=== PATIENT | male | born 2005 | race Caucasian/White ===

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

== ENCOUNTER 2023-01-16 09:11 | Outpatient (CLI) | payer MEDICAID, SELFPAY ==
--- NOTE | 2023-01-16 09:24 | XR_ITS ---
WS: [id number] XR lumbar spine f/e only [id number] REASON FOR EXAM: BACK PAIN, LUMBAR FINDINGS: Lateral neutral, flexion, and extension views of the lumbar cervical spine only. Mild exaggeration of lumbar lordosis. Normal vertebral bodies L1 L5 Mild wedge deformity of T11 and T12 with kyphosis at the thoracolumbar junction. Normal intervertebral disc spaces. No spondylolysis. No significant spondylolisthesis. XR/XR lumbar spine f/e only [id number] IMPRESSION: Exaggerated lordosis of the lumbar cervical spine. Kyphosis at the thoracolumbar junction as above. Incompletely evaluated by this examination. History indicates evaluation for scoliosis. There are no standing AP views of t he thoracolumbar spine to make this evaluation.
== END 2023-01-16 09:12 | disposition home or self-care (01) ==
LOC: RAD 09:12
PROVIDERS: PCP Nurse Practitioner Family; Visit Provider Nurse Practitioner Family
DX: M40.56 Lordosis, unspecified, lumbar region (principal); M40.205 Unspecified kyphosis, thoracolumbar region; M54.50 Low back pain, unspecified
CPT/HCPCS: 72120

== ENCOUNTER 2023-02-13 07:44 | Outpatient (CLI) | payer MEDICAID, SELFPAY ==
--- NOTE | 2023-02-13 07:54 | MR_ITS ---
WS: [id number] MRI LUMBAR SPINE NONCONTRAST HISTORY: LUMBAR BACK PAIN W/RADICULOPATHY COMPARISON: None available. TECHNIQUE: Sagittal and axial multisequence imaging is submitted. Normal lumbar alignment with no compression fractures or marrow edema. Disc spaces and vertebral body heights are well-preserved. Conus terminates normally at L1-2 disc level. L1-L2: Normal. L2-L3: Mild facet arthritis. No stenosis. L3-L4: Mild facet and ligamentum flavum arthritis. Very mild encroachment upon the ventral thecal sac . No high-grade stenosis. L4-L5: Mild annular disc bulging with mild ligamentum flavum and facet arthritis. There is mild narro wing of the central canal and subarticular recesses by the disc and facet disease. No high-grade sten osis. L5-S1: Mild disc bulging slightly asymmetric to the right. Very tiny right paracentral disc protrusio n. No significant stenosis. IMPRESSION: 1. No high-grade central or foraminal stenosis. 2. Mild facet arthritis from L2-3 to L5-S1. 3. Very mild central and subarticular recess stenosis at L4-5.
== END 2023-02-13 07:45 | disposition home or self-care (01) ==
PROVIDERS: PCP Nurse Practitioner Family; Visit Provider Nurse Practitioner Family
DX: M47.26 Other spondylosis with radiculopathy, lumbar region (principal); M48.061 Spinal stenosis, lumbar region without neurogenic claudication
CPT/HCPCS: 72148

== ENCOUNTER 2023-04-11 08:51 | Outpatient (RCR) | payer MEDICAID, SELFPAY | END 2023-05-07 23:59 | disposition home or self-care (01) | LOC: TPT 08:51 | PROVIDERS: Visit Provider Nurse Practitioner Family | DX: M54.16 Radiculopathy, lumbar region (principal) | CPT/HCPCS: 97110; 97161 ==

== ENCOUNTER 2023-05-08 06:00 | Outpatient (RCR) | payer MEDICAID, SELFPAY | END 2023-06-06 23:59 | disposition home or self-care (01) | LOC: TPT 06:00 | PROVIDERS: PCP Nurse Practitioner Family; Visit Provider Nurse Practitioner Family | DX: M54.16 Radiculopathy, lumbar region (principal) | CPT/HCPCS: 97110 ==

== ENCOUNTER 2023-05-21 13:34 | Emergency (ER) | payer MEDICAID, SELFPAY ==
[2023-05-21 14:32] LABS: Basophils % 0.3 %; Eosinophils # 0.2 10^3/uL (0.0-0.8); Eosinophils % 2.1 %; Hematocrit 49.1 % (37-53); Lymphocytes # 1.8 10^3/uL (1.5-6.5); Lymphocytes % 19.3 %; Mean Corpuscular HGB Conc 34.2 g/dL (30-55); Mean Corpuscular Hemoglobin 29.4 pg (27-33); Mean Platelet Volume 10.5 fL (7.4-10.4); Monocytes # 0.5 10^3/uL (0.2-0.9); Monocytes % 5.5 %; Neutrophils # 6.66 10^3/uL (1.8-8.0); Neutrophils % 72.5 %; Nucleated Red Blood Cells % 0 %; Platelet Count 178 10^3/cmm (157-399); Red Blood Count 5.71 10^6/uL (3.85-5.65); White Blood Count 9.19 10^3/uL (4.5-13.0)
[2023-05-21 14:39] VITALS: BP 118/61; PULSE 109; RESP 17; TEMP 36.7; O2SAT 99; BMI 37.5
[2023-05-21 14:48] LABS: Urine Appearance SL Hazy (CLEAR); Urine Color Dark Yellow (Yellow)
[2023-05-21 14:49] LABS: Add Urine Microscopic? YES; Bilirubin Urine Neg (Negative); Blood Urine Neg (Negative); Glucose Urine UA Norm (Normal); Ketones Urine 2+ (Negative); Leukocyte Esterase Urine Negative (Negative); Nitrate Urine Negative (Negative); Protein Urine Neg (Negative); Urobilinogen Urine Norm (Negative); pH Urine 5 (5-7)
[2023-05-21 14:52] LABS: Alanine Aminotransferase 21 U/L (0-41); Albumin Level 4.6 g/dL (3.5-5.2); Alkaline Phosphatase 96 U/L (40-130); Anion Gap 18.9 (5-19); Aspartate Amino Transferase 19 U/L (0-40); Blood Urea Nitrogen 11 mg/dL (6-20); Calcium 9.6 mg/dL (8.5-10.5); Carbon Dioxide 22 mmol/L (22-29); Chloride 101 mmol/L (98-107); Globulin 3.2 g/dL (1.3-4.6); Glomerular Filtration Rate 123.2 mL/min (90-130); Glucose 79 mg/dL (65-115); Lipase 25 U/L (13-60); Osmolality Calculated 284 mOsm/kg (285-295); Potassium 3.9 mmol/L (3.5-5.1); Sodium 138 mmol/L (136-145); Total Bilirubin 0.9 mg/dL (0.15-1.2); Total Protein 7.8 g/dL (6.6-8.7)
[2023-05-21 14:54] LABS: Add Urine Culture? No; Bacteria Urine TRACE /hpf; Hyaline Casts Urine 0-4 /lpf; Mucus Urine 3+ /hpf; RBC Urine 0-4 /hpf (0-2); Squamous Epithelial Cell Urine 0-4 /hpf (0-5); WBC Urine 0-4 /hpf (0-5)
--- NOTE | 2023-05-21 15:06 | ED_ITS ---
HPI - Abdominal Pain General: Chief Complaint: Abdominal Pain Stated Complaint: Abdominal pain, Nausea, change in bowel movement Time Seen by Provider: 05/21/23 14:52 Source: patient Mode of arrival: ambulatory Limitations: no limitations History of Present Illness: Patient is a 18-year-old male who presents to ED today with a complaint of upper abdominal pain over the past week or so. Patient states pain seems to be intermittent and somewhat worse following eating. He states he feels nauseous but has not had any episodes of emesis. He has not noticed any significant changes to his bowel movements. Denies urinary symptoms. No fevers. Patient states he had similar symptoms several months ago and had an EGD/colonoscopy performed by Dr. Guevara. He states findings of EGD showed gastritis. He is currently taking omeprazole 20 Mg daily. Patient has not noticed any dark or tarry stools. He does feel like pain sometimes radiates upward into his chest. MD elicited complaint: abdominal pain Pertinent past history: other (gastritis) Onset (ago): week(s) Pain Consistency: intermittent Location: Epigastric and LUQ Severity: moderate Quality: aching and burning Radiation: none Migration to: no migration Exacerbating factors: eating Relieving factors: nothing Associated Symptoms: Reports nausea; Denies chills, GI cramping, diarrhea, dysuria, fever(s), heartburn, hematochezia, melena, syncope and vomiting Review of Systems Const: Denies: fever(s) or chills Eyes: Denies: change in vision or blurry vision Card: Denies: chest pain, palpitations, irregular heart rhythm, lightheadedness, syncope or dyspnea on exertion Resp: Denies: dyspnea, productive cough or pain on inspiration GI: Reports: abdominal pain and nausea; Denies: vomiting, heartburn, diarrhea, GI cramping, hematochezia or melena : Denies: flank pain, difficulty urinating, dysuria, urinary frequency, urinary urgency or urinary hesitancy Musc: Denies: neck pain, back pain, extremity pain, extremity swelling or joint pain Skin/Breast: Denies: rash Neuro: Denies: headache(s), numbness in extremities, weakness in extremities, sensory changes or dizziness PFS ED PFSH: Medical History No significant past medical history Surgical History No significant past surgical history Physical Exam Const: COMMON NORMALS: no acute distress, average body habitus, patient oriented x3, no limitations, healthy appearing, alert and well nourished HENMT: COMMON NORMALS: normocephalic and atraumatic HEAD & SCALP: normocephalic and atraumatic Eye: COMMON NORMALS: no scleral icterus Neck/C-Spine: COMMON NORMALS: full ROM, no lymphadenopathy, supple and no meningeal signs Chest: COMMONS NORMALS: normal inspection of the chest Resp: COMMON NORMALS: normal respiratory effort and clear to auscultation bilaterally AUSCULTATION: clear to auscultation bilaterally Cardio: COMMON NORMALS: regular rate and regular rhythm RATE: regular rate RHYTHM: regular rhythm GI: COMMON NORMALS: Normal to inspection, nondistended, normoactive bowel sounds present, Soft to palpation, No hepatosplenomegaly present and no masses INSPECTION: Yes normal to inspection AUSCULTATION: Yes normoactive bowel sounds PALPATION: Yes Soft to palpation, Yes Tenderness to palpation present (GI) (epigastric, LUQ), No Guarding due to palpation present (GI), No Rigid due to palpation and Yes No hepatosplenomegaly present : COMMON NORMALS: Yes no CVA tenderness BLADDER/KIDNEY EXAM: Yes no CVA tenderness Back/Pelvis: COMMON NORMALS: no CVA tenderness and thoracic and lumbar spine normal to inspection Extremity: COMMON NORMALS: normal to inspection GENERAL: Yes normal exam except as noted Neuro: COMMON NORMALS: patient oriented x3 SENSORIUM/ORIENTATION: Yes alert MENINGEAL SIGNS: Yes no meningeal signs Skin: COMMON NORMALS: no rashes or lesions noted GENERAL SKIN EXAM: no rashes or lesions noted Course Vital Signs: Vital signs: Vital Signs Temperature 98.1 F 05/21/23 14:39 Pulse Rate 74 05/21/23 15:23 Respiratory Rate 17 05/21/23 14:39 Blood Pressure 145/94 05/21/23 15:23 Pulse Oximetry 98 05/21/23 15:23 Oxygen Delivery Me thod Room Air 05/21/23 15:23 MDM - Abdominal Pain Medical Decision Making Patient appears in no acute distress. His vital signs are stable. Blood work overall is unremarkable. Normal LFTs and lipase. Patient does state he gained relief from the GI cocktail. He has known history of gastritis. States he takes omeprazole 20 Mg daily. We will increase his omeprazole to twice daily and place him on Carafate. Recommend he follow-up with his primary care provider in 1 to 2 weeks if symptoms do not seem to be improving and they can formulate plan thereafter. Return to ED precautions given. Differential Diagnosis Likely abdominal pain, constipation, gastroenteritis and pancreatitis Medical Records I reviewed the patient's medical records. Lab Data I reviewed the patient's lab results. 05/21/23 14:28 05/21/23 14: Labs/Radiology: Laboratory Results WBC 9.19 10^3/uL (4.5-13.0) 05/21/23 14: RBC 5.71 10^6/uL (3.85-5.65) H 05/21/23 14: Hgb 16.80 g/dL (13.2-15.6) H 05/21/23 14: Hct 49.1 % (37-53) 05/21/23 14: MCV 86.0 fl (82-101) 05/21/23 14: MCH 29.4 pg (27-33) 05/21/23 14: MCHC 34.2 g/dL (30-55) 05/21/23 14: RDW 12.0 % (12.1-15.1) L 05/21/23 14: Plt Count 178 10^3/cmm (157-399) 05/21/23 14: MPV 10.5 fL (7.4-10.4) H 05/21/23 14: Neut % (Auto) 72.5 % 05/21/23 14: Lymph % (Auto) 19.3 % 05/21/23 14: [place] % (Auto) 5.5 % 05/21/23 14: Eos % (Auto) 2.1 % 05/21/23 14: Baso % (Auto) 0.3 % 05/21/23 14: Neut # (Auto) 6.66 10^3/uL (1.8-8.0) 05/21/23 14: Lymph # (Auto) 1.8 10^3/uL (1.5-6.5) 05/21/23 14:28 [place] # (Auto) 0.5 10^3/uL (0.2-0.9) 05/21/23 14: Eos # (Auto) 0.2 10^3/uL (0.0-0.8) 05/21/23 14: Baso # (Auto) 0.0 10^3/uL (0.0-0.1) 05/21/23 14: Nucleated RBC % (auto) 0 % 05/21/23 14: Nucleated RBCs # 0.0 /100WBC 05/21/23 14:28 Sodium 138 mmol/L (136-145) 05/21/23 14: Potassium 3.9 mmol/L (3.5-5.1) 05/21/23 14: Chloride 101 mmol/L (98-107) 05/21/23 14: Carbon Dioxide 22 mmol/L (22-29) 05/21/23 14: Anion Gap 18.9 (5-19) 05/21/23 14: BUN 11 mg/dL (6-20) 05/21/23 14: Creatinine 0.8 mg/dL (0.7-1.2) 05/21/23 14: GFR Calculation 123.2 mL/min (90-130) 05/21/23 14: Glucose 79 mg/dL (65-115) 05/21/23 14: Calculated Osmolality 284 mOsm/kg (285-295) L 05/21/23 14: Calcium 9.6 mg/dL (8.5-10.5) 05/21/23 14: Total Bilirubin 0.9 mg/dL (0.15-1.2) 05/21/23 14: AST 19 U/L (0-40) 05/21/23 14: ALT 21 U/L (0-41) 05/21/23 14: Alkaline Phosphatase 96 U/L (40-130) 05/21/23 14: Total Protein 7.8 g/dL (6.6-8.7) 05/21/23 14: Albumin 4.6 g/dL (3.5-5.2) 05/21/23 14: Globulin 3.2 g/dL (1.3-4.6) 05/21/23 14:28 Lipase 25 U/L (13-60) 05/21/23 14:28 Urine Color Dark yellow (Yellow) 05/21/23 13:46 Urine Appearance Sl hazy (CLEAR) A 05/21/23 13:46 Urine pH 5 (5-7) 05/21/23 13:46 Ur Specific [place] 1.020 (1.005-1.030) 05/21/23 13:46 Urine Protein Neg (Negative) 05/21/23 13:46 Urine Glucose (UA) Norm (Normal) 05/21/23 13:46 Urine Ketones 2+ (Negative) H 05/21/23 13:46 Urine Blood Neg (Negative) 05/21/23 13:46 Urine Nitrate Negative (Negative) 05/21/23 13:46 Urine Bilirubin Neg (Negative) 05/21/23 13:46 Urine Urobilinogen Norm mg/dL (Negative) 05/21/23 13:46 Ur Leukocyte Esterase Negative (Negative) 05/21/23 13:46 Urine RBC 0-4 /hpf (0-2) H 05/21/23 13:46 Urine WBC 0-4 /hpf (0-5) H 05/21/23 13:46 Ur Squamous Epith Cells 0-4 /hpf (0-5) H 05/21/23 13:46 Amorphous Sediment Not Reportable 05/21/23 13:46 Urine Bacteria Trace /hpf (NONE) 05/21/23 13:46 Hyaline Casts 0-4 /lpf H 05/21/23 13:46 Urine Mucus 3+ /hpf 05/21/23 13:46 No radiology studies performed this visit Discharge Plan Discharge Patient Disposition: Home Clinical Impression: Gastritis Qualifiers: Gastritis type: unspecified gastritis Chronicity: chronic Gastritis bleeding: without bleeding Qualified Code(s): K29.50 - Unspecified chronic gastritis without bleeding Condition: Stable Prescriptions: New Carafate 1 gram tablet 1 g PO TID 14 Days Qty: 42 0RF Changed omeprazole 20 mg capsule,delayed release(DR/EC) 20 mg PO BID Qty: 60 0RF No Action albuterol sulfate 90 mcg/actuation Hfa Aerosol Inhaler 2 puff INHALATION QID PRN (Reason: Shortness Of Breath Or Wheezing) fluticasone propion-salmeterol [Advair HFA] 230-21 mcg/actuation Hfa Aerosol Inhaler 2 puff INHALATION DAILY levocetirizine [Xyzal] 5 mg Tablet 5 mg PO BID duloxetine 30 mg capsule,delayed release(DR/EC) 30 mg PO QPM rizatriptan 10 mg tablet 10 mg PO DIRECTED PRN (Reason: Migraine Headache) Discharge Orders: Discharge ED (Routine); Ordered 05/21/23 Ordered By: Blanca Simon Referrals: Angela Mejia FNP [Primary Care Provider] - Activity Restrictions/Additional Instructions: As we discussed we will have you start taking your omeprazole twice daily. We will place you on a new medication as well. Please follow-up with your primary care provider in approximately 2 weeks to discuss symptoms. Coding Level of Care Code ED [employer]ist for Jennifer Duarte
[2023-05-21] MEDS: sodium chloride 0.9% 1,000 ML 999 ML IV (15:17)
[2023-05-21] MEDS: ondansetron 2 mg/ML SDV 2 mL 4 MG IVP (15:19)
[2023-05-21] MEDS: lidocaine 2% viscous 15 ML, aluminum-mag hydrox-simethicon 30 ML, sucralfate oral liq 1 GM PO (15:19)
[2023-05-21 15:23] VITALS: BP 145/94; PULSE 74; O2SAT 98
== END 2023-05-21 16:46 | disposition home or self-care (01) ==
PROVIDERS: Emergency Medicine; Emergency Provider Physician Assistant; PCP Nurse Practitioner Family
DX: K29.50 Unspecified chronic gastritis without bleeding (principal)
CPT/HCPCS: 36415; 80053; 81001; 83690; 85025; 96374; 99284; J2405; J7030

== ENCOUNTER 2023-06-05 07:55 | Outpatient (CLI) | payer MEDICAID, SELFPAY ==
--- NOTE | 2023-06-05 08:00 | US_ITS ---
WS: [id number] ULTRASOUND ABDOMEN LIMITED CLINICAL INFORMATION: ABDOMINAL PAIN COMPARISON: None. FINDINGS: Limited examination due to body habitus and bowel gas Liver Size: Normal. Craniocaudal length: 15.6 cm. Echogenicity: Normal. Surface nodularity: None. Mass (size and location): None. Bile ducts Intrahepatic ducts: Normal. Common bile duct diameter: 0.2 cm. Gallbladder Normal. Gallstones: None. Gallbladder sludge: None. Gallbladder wall thickening: None. Pericholecystic fluid: None. Sonographic Nicolas sign: Absent. Pancreas Not seen. Right kidney: Normal. Hydronephrosis: None. Size: 11.3 cm x 4.8 cm x 4.5 cm. Abdominal aorta and IVC Visualized portions are normal. Ascites: None. IMPRESSION: Technically difficult study 1. Normal liver. 2. Normal gallbladder. 3. No hydronephrosis in the RIGHT kidney. 4. No ascites.
== END 2023-06-05 07:56 | disposition home or self-care (01) ==
LOC: RAD 07:55
PROVIDERS: PCP Nurse Practitioner Family; Visit Provider Nurse Practitioner Family
DX: R10.9 Unspecified abdominal pain (principal)
CPT/HCPCS: 76705

== ENCOUNTER 2023-06-07 06:00 | Outpatient (RCR) | payer MEDICAID, SELFPAY | END 2023-06-27 23:59 | disposition home or self-care (01) | LOC: TPT 06:00 | PROVIDERS: PCP Nurse Practitioner Family; Visit Provider Nurse Practitioner Family | DX: M54.16 Radiculopathy, lumbar region (principal) | CPT/HCPCS: 97110 ==

== ENCOUNTER 2024-07-28 03:39 | Emergency (ER) | payer MEDICAID, SELFPAY ==
[2024-07-28 03:42] VITALS: BP 148/90; PULSE 77; RESP 18; TEMP 36.9; O2SAT 100; BMI 34.8
--- NOTE | 2024-07-28 03:49 | XRR_ITS ---
PROCEDURE INFORMATION: Exam: XR Chest Exam date and time: 07/28/2024 4:14 AM Age: 19 years old Clinical indication: Pain; Chest pressure; Additional info: Chest pain TECHNIQUE: Imaging protocol: Radiologic exam of the chest. Views: 1 view. COMPARISON: CR XR chest 1V portable [id number] 10/05/2022 8:22 AM FINDINGS: Lungs: No CHF/pulmonary edema. Visible lungs appear essentially clear. Pleural spaces: No visible pneumothorax. No definite pleural fluid. Heart/Mediastinum: Heart size is within normal limits. Bones/joints: No significant acute finding. XR/XR chest 1V portable [id number] IMPRESSION: 1. Essentially unremarkable single view chest. 2. Other details discussed above.
[2024-07-28 03:50] VITALS: BP 148/90; PULSE 105; RESP 18; O2SAT 98
--- NOTE | 2024-07-28 03:51 | ED_ITS ---
HPI - Abdominal Pain 2 General: Chief Complaint: Abdominal Pain Stated Complaint: Sharp Pains\Right Side Time Seen by Provider: 07/28/24 03:46 History of Present Illness: 19-year-old male who presents emergency room with right lower lung pain. This started yesterday. Worsened overnight. Hurts with deep breathing. Hurts with yawning. He has not had any cough. No fevers. It radiates into his back. No tenderness to palpation of his abdomen. He had his gallbladder out a few months back. Related Data Home Medications Medication Instructions Recorded Confirmed albuterol sulfate 90 mcg/actuation 2 puff inhalation QID PRN 10/05/22 05/21/23 aerosol inhaler Shortness Of Breath Or Wheezing fluticasone propionate 230 2 puff inhalation DAILY 10/05/22 05/21/23 mcg-salmeterol 21 mcg/actuation HFA inhaler (Advair HFA) levocetirizine 5 mg tablet (Xyzal) 5 mg PO BID 10/05/22 05/21/23 duloxetine 30 mg capsule,delayed 30 mg PO QPM 11/29/22 05/21/23 release rizatriptan 10 mg tablet 10 mg PO DIRECTED PRN Migraine 05/21/23 05/21/23 Headache Previous Rx's Medication Instructions Recorded omeprazole 20 mg capsule,delayed 20 mg PO BID #60 caps 05/21/23 release azithromycin 250 mg tablet See Rx Instructions PO .COMPLEX #6 07/28/24 (Zithromax Z-Pelon) tabs dexamethasone 6 mg tablet 6 mg PO DAILY 5 days #5 tabs 07/28/24 Allergies Allergy/AdvReac Type Severity Reaction Status Date / Time No Known Allergies Allergy Verified 07/28/24 03:45 Review of Systems 2 Narrative: Constitutional symptoms: Negative except as documented in HPI. Skin symptoms: Negative except as documented in HPI. Eye symptoms: Negative except as documented in HPI. ENMT symptoms: Negative except as documented in HPI. Respiratory symptoms: Negative except as documented in HPI. Cardiovascular symptoms: Negative except as documented in HPI. Gastrointestinal symptoms: Negative except as documented in HPI. Genitourinary symptoms: Negative except as documented in HPI. Musculoskeletal symptoms: Negative except as documented in HPI. Neurologic symptoms: Negative except as documented in HPI. Psychiatric symptoms: Negative except as documented in HPI. Endocrine symptoms: Negative except as documented in HPI. [facility] ED 2 PFSH: Medical History No significant past medical history Surgical History No significant past surgical history Physical Exam 2 Narrative: EXAM NARRATIVE: General: Alert, no acute distress. Skin: Warm, dry. Head: Normocephalic, atraumatic. Neck: Supple, trachea midline. Eye: Extraocular movements are intact. Ears, nose, mouth and throat: mucosa moist. Cardiovascular: Regular, Normal peripheral perfusion. Respiratory: Lungs are clear to auscultation, respirations are non-labored, breath sounds are equal, Symmetrical chest wall expansion. Gastrointestinal: Soft, Nontender, Non distended Musculoskeletal: Normal ROM, no deformity. Neurological: Alert and oriented, No focal neurological deficit observed. Psychiatric: Cooperative, appropriate mood & affect. Course 2 Vital Signs: Vital signs: Vital Signs Temperature 98.4 F 07/28/24 03:42 Pulse Rate 91 07/28/24 05:17 Respiratory Rate 18 07/28/24 05:17 Blood Pressure 136/78 07/28/24 05:17 Pulse Oximetry 96 07/28/24 05:17 Oxygen Delivery Me thod Room Air 07/28/24 05:17 MDM - Abdominal Pain Medical Decision Making Differential diagnosis for patient with chest pain includes but is not limited to and based on the above HPI, review of systems and physical exam: Pneumonia. unstable angina. angina. Acute coronary syndrome / [place]. Pulmonary embolism. Costochondritis / musculoskeletal. Pleurisy. Pericarditis. Esophageal spasm. Pancreatis. Cholecystitis. Orders placed to evaluate differential diagnosis based on the above differential, HPI and physical exam EKG: Time 4:43 AM. Rate 83. Normal sinus rhythm, No ST-T changes, no ectopy, normal IA & QRS intervals, This was reviewed and interpreted by myself the ER physician at 4:45 AM Chest x-ray: No acute process. No infiltrate. No pneumothorax. This was reviewed and interpreted by myself the emergency room physician. I also reviewed the radiology report. Lab Review: Laboratory results were reviewed and interpreted by myself the emergency room physician. Lab work is unremarkable. No leukocytosis. No anemia. No renal failure. D- dimer is negative so patient does not have a pulmonary embolus. I reviewed the patient's medical record. Reexamination: Patient remained stable. No increased work of breathing. No altered mental status. No focal motor deficits. Assessment and plan: Noncardiac chest pain ?Toradol emergency room - Discharged home - Discussed plan with patient. Answered any questions. - Evaluation and treatment of this problem were appropriate in the emergency setting. Lab Data 07/28/24 04:08 07/28/24 04:08 Labs/Radiology: Radiology Impressions Chest X-Ray 07/28/24 03:49 IMPRESSION: 1. Essentially unremarkable single view chest. 2. Other details discussed above. Laboratory Results WBC 8.76 10^3/uL (3.29-11.43) 07/28/24 04:08 RBC 5.21 10^6/uL (3.85-5.65) 07/28/24 04:08 Hgb 15.30 g/dL (11.27-16.99) 07/28/24 04:08 Hct 45.1 % (37-53) 07/28/24 04:08 MCV 86.6 fl (82-101) 07/28/24 04:08 MCH 29.4 pg (27-33) 07/28/24 04:08 MCHC 33.9 g/dL (30-55) 07/28/24 04:08 RDW 12.2 % (12.1-15.1) 07/28/24 04:08 Plt Count 180 10^3/cmm (157-399) 07/28/24 04:08 MPV 9.9 fL (7.4-10.4) 07/28/24 04:08 Neut % (Auto) 63.2 % 07/28/24 04:08 Lymph % (Auto) 25.0 % 07/28/24 04:08 [place] % (Auto) 8.6 % 07/28/24 04:08 Eos % (Auto) 2.9 % 07/28/24 04:08 Baso % (Auto) 0.1 % 07/28/24 04:08 Neut # (Auto) 5.54 10^3/uL (1.8-7.7) 07/28/24 04:08 Lymph # (Auto) 2.2 10^3/uL (0.8-4.8) 07/28/24 04:08 [place] # (Auto) 0.8 10^3/uL (0.2-0.9) 07/28/24 04:08 Eos # (Auto) 0.3 10^3/uL (0.0-0.8) 07/28/24 04:08 Baso # (Auto) 0.0 10^3/uL (0.0-0.1) 07/28/24 04:08 Nucleated RBC % (auto) 0 % 07/28/24 04:08 Nucleated RBCs # 0.0 /100WBC 07/28/24 04:08 D-Dimer 0.48 ug/mLFEU (0-0.59) 07/28/24 04:08 Sodium 140 mmol/L (136-145) 07/28/24 04:08 Potassium 4.0 mmol/L (3.5-5.1) 07/28/24 04:08 Chloride 104 mmol/L (98-107) 07/28/24 04:08 Carbon Dioxide 24 mmol/L (22-29) 07/28/24 04:08 Anion Gap 16.0 (5-19) 07/28/24 04:08 BUN 19 mg/dL (6-20) 07/28/24 04:08 Creatinine 0.6 mg/dL (0.7-1.2) L 07/28/24 04:08 GFR Calculation 170.1 mL/min (90-130) H 07/28/24 04:08 Glucose 101 mg/dL (65-115) 07/28/24 04:08 Calculated Osmolality 292 mOsm/kg (285-295) 07/28/24 04:08 Lactic Acid 0.8 mmol/L (0.5-2.2) 07/28/24 04:08 Calcium 8.8 mg/dL (8.5-10.5) 07/28/24 04:08 Total Bilirubin 0.5 mg/dL (0.15-1.2) 07/28/24 04:08 AST 16 U/L (0-40) 07/28/24 04:08 ALT 37 U/L (0-41) 07/28/24 04:08 Alkaline Phosphatase 80 U/L (40-130) 07/28/24 04:08 Total Protein 7.2 g/dL (6.6-8.7) 07/28/24 04:08 Albumin 4.2 g/dL (3.5-5.2) 07/28/24 04:08 Globulin 3.0 g/dL (1.3-4.6) 07/28/24 04:08 Urine Color Yellow (Yellow) 07/28/24 04:49 Urine Appearance Clear (CLEAR) 07/28/24 04:49 Urine pH 6.5 (5-7) 07/28/24 04:[address] [place] 1.029 (1.005-1.030) 07/28/24 04:49 Urine Protein Negative (Negative) 07/28/24 04:49 Urine Glucose (UA) Negative (Normal) 07/28/24 04:49 Urine Ketones Negative (Negative) 07/28/24 04:49 Urine Blood Negative (Negative) 07/28/24 04:49 Urine Nitrate Negative (Negative) 07/28/24 04:49 Urine Bilirubin Negative (Negative) 07/28/24 04:49 Urine Urobilinogen 1.0 mg/dL (Negative) 07/28/24 04:49 Ur Leukocyte Esterase Negative (Negative) 07/28/24 04:49 Urine RBC 0-2 /hpf (0-2) 07/28/24 04:49 Urine WBC 0-5 /hpf (0-5) 07/28/24 04:49 Ur Squamous Epith Cells 0-5 /hpf (0-5) 07/28/24 04:49 Amorphous Sediment Not Reportable 07/28/24 04:49 Urine Bacteria None seen /hpf (NONE) 07/28/24 04:49 Hyaline Casts 0.40 /lpf 07/28/24 04:49 All radiology interpretation(s) finalized by discharge Discharge Plan Discharge Patient Disposition: Home Clinical Impression: Non-cardiac chest pain Condition: Stable Prescriptions: New azithromycin [Zithromax Z-Pelon] 250 mg tablet See Rx Instructions .ROUTE .COMPLEX Qty: 6 0RF Rx Instructions: For 250 mg dose pack: take 500 mg today (day 1), then 250 mg for 4 days (days 2-5) dexamethasone 6 mg tablet 6 mg PO DAILY 5 Days Qty: 5 0RF No Action albuterol sulfate 90 mcg/actuation Hfa Aerosol Inhaler 2 puff INHALATION QID PRN (Reason: Shortness Of Breath Or Wheezing) fluticasone propion-salmeterol [Advair HFA] 230-21 mcg/actuation Hfa Aerosol Inhaler 2 puff INHALATION DAILY levocetirizine [Xyzal] 5 mg Tablet 5 mg PO BID duloxetine 30 mg capsule,delayed release(DR/EC) 30 mg PO QPM rizatriptan 10 mg tablet 10 mg PO DIRECTED PRN (Reason: Migraine Headache) omeprazole 20 mg capsule,delayed release(DR/EC) 20 mg PO BID Qty: 60 0RF Discharge Orders: Discharge ED (Routine); Ordered 07/28/24 Ordered By: Marjorie Tamez Referrals: Angela Mejia FNP [Primary Care Provider] - Discharge Diet: Usual diet Discharge Activity: Increase activity as tolerated Patient Instructions: Pleurisy (ED), Opioid Safety, Pain Management Activity Restrictions/Additional Instructions: Thank you for choosing [facility] for your healthcare needs today. Please realize this is an emergency room and that we are providing you with a medical screening exam and this may not be complete and all inclusive of all the testing and or work up that you may need to determine your ailment or severity of your illness. You have been screened and evaluated and felt safe for discharge. Health conditions do change or evolve sometimes and as such it is important that you follow up with your Primary Doctor to be re checked, 3-5 days is a general good time frame for follow up. You are always welcome to return to the ED for re assessment if your symptoms are worsening or you have new concerns Coding Level of Care Code ED Automated Process Operator for Jennifer Duarte
[2024-07-28 04:12] LABS: Basophils % 0.1 %; Eosinophils # 0.3 10^3/uL (0.0-0.8); Eosinophils % 2.9 %; Hematocrit 45.1 % (37-53); Lymphocytes # 2.2 10^3/uL (0.8-4.8); Mean Corpuscular HGB Conc 33.9 g/dL (30-55); Mean Corpuscular Hemoglobin 29.4 pg (27-33); Mean Corpuscular Volume 86.6 fl (82-101); Mean Platelet Volume 9.9 fL (7.4-10.4); Monocytes # 0.8 10^3/uL (0.2-0.9); Monocytes % 8.6 %; Neutrophils # 5.54 10^3/uL (1.8-7.7); Neutrophils % 63.2 %; Nucleated Red Blood Cells % 0 %; Platelet Count 180 10^3/cmm (157-399); Red Blood Count 5.21 10^6/uL (3.85-5.65); Red Cell Distribution Width 12.2 % (12.1-15.1); White Blood Count 8.76 10^3/uL (3.29-11.43)
[2024-07-28 04:29] VITALS: BP 124/84; PULSE 85; O2SAT 96
[2024-07-28 04:29] LABS: D Dimer 0.48 ug/mLFEU (0-0.59)
[2024-07-28 04:31] LABS: Alanine Aminotransferase 37 U/L (0-41); Albumin Level 4.2 g/dL (3.5-5.2); Alkaline Phosphatase 80 U/L (40-130); Aspartate Amino Transferase 16 U/L (0-40); Blood Urea Nitrogen 19 mg/dL (6-20); Calcium 8.8 mg/dL (8.5-10.5); Carbon Dioxide 24 mmol/L (22-29); Chloride 104 mmol/L (98-107); Glomerular Filtration Rate 170.1 mL/min (90-130); Glucose 101 mg/dL (65-115); Osmolality Calculated 292 mOsm/kg (285-295); Sodium 140 mmol/L (136-145); Total Bilirubin 0.5 mg/dL (0.15-1.2); Total Protein 7.2 g/dL (6.6-8.7)
[2024-07-28 04:32] LABS: Lactic Sepsis W/Reflex 0.8 mmol/L (0.5-2.2)
--- NOTE | 2024-07-28 04:43 | ECG_ITS ---
[facility] Test Date: 2024-07-28 Pat Name: Mook Barker Department: Room: Gender: Male Mail Processing Associate: : 2005 Requested By: Marjorie Murray Order Number: [id number] Sumner MD: Geronimo Villegas M.D. Measurements Intervals [place] Rate: 83 P: 47 VA: 154 QRS: 23 QRSD: 93 T: 17 QT: 347 QTc: 409 Interpretive Statements SINUS RHYTHM Compared to ECG 10/05/2022 07:50:35 No significant changes Electronically Signed On 08-01-2024 23:19:52 LACE INSPECTOR by Geronimo Villegas M.D. [email or web address]
[2024-07-28 04:54] LABS: Bilirubin Urine Negative (Negative); Blood Urine Negative (Negative); Glucose Urine UA Negative (Normal); Ketones Urine Negative (Negative); Leukocyte Esterase Urine Negative (Negative); Nitrate Urine Negative (Negative); Protein Urine Negative (Negative); Specific Gravity, Urine 1.029 (1.005-1.030); Urine Appearance Clear (CLEAR); Urine Color Yellow (Yellow); pH Urine 6.5 (5-7)
[2024-07-28 04:58] LABS: Bacteria Urine None Seen /hpf; RBC Urine 0-2 /hpf (0-2); Squamous Epithelial Cell Urine 0-5 /hpf (0-5); WBC Urine 0-5 /hpf (0-5)
[2024-07-28] MEDS: ketorolac 60 mg/2 mL INJ IM (05:14)
[2024-07-28 05:17] VITALS: BP 136/78; PULSE 91; RESP 18; O2SAT 96
[2024-07-28 05:42] VITALS: BP 139/75; PULSE 81; RESP 18; O2SAT 95
[2024-07-28 06:05] LABS: Adenovirus Not Detected (NOT DETECT); Chlamydia Pneumoniae Not Detected (NOT DETECT); Coronavirus 229E,HKU1,NL63,OC4 Not Detected (NOT DETECT); Human Metapneumovirus Not Detected (NOT DETECT); Human Rhinovirus/Enterovirus Not Detected (NOT DETECT); Influenza A Not Detected (NOT DETECT); Influenza A H1 Not Detected (NOT DETECT); Influenza A H1-2009 Not Detected (NOT DETECT); Influenza A H3 Not Detected (NOT DETECT); Influenza B Not Detected (NOT DETECT); Mycoplasma Pneumoniae Not Detected (NOT DETECT); Parainfluenza Virus Type 1 Not Detected (NOT DETECT); Parainfluenza Virus Type 2 Not Detected (NOT DETECT); Parainfluenza Virus Type 3 Not Detected (NOT DETECT); Parainfluenza Virus Type 4 Not Detected (NOT DETECT); Respiratory Syncytial Virus A Not Detected (NOT DETECT); Respiratory Syncytial Virus B Not Detected (NOT DETECT); SARS-COV-2 Not Detected (NOT DETECT)
== END 2024-07-28 05:46 | disposition home or self-care (01) ==
PROVIDERS: Emergency Provider Emergency Medicine; PCP Nurse Practitioner Family
DX: R07.89 Other chest pain (principal)
CPT/HCPCS: 36415; 71045; 80053; 81001; 83605; 85025; 85378; 87486; 87581; 87633; 93005; 96372; 99285; J1885